=== PATIENT | male | born 1975 | race Caucasian/White ===

== ENCOUNTER → 2017-08-10 | Outpatient (CLI) | payer MEDICARE, MEDICAID | END | disposition home or self-care (01) | LOC: CFH 15:30 | PROVIDERS: ATTEND Nurse Practitioner | DX: I82.409 Acute embolism and thrombosis of unspecified deep veins of unspecified lower extremity (principal); M79.604 Pain in right leg; M79.605 Pain in left leg; R60.9 Edema, unspecified | CPT/HCPCS: 93970 ==